=== PATIENT | male | born 1970 | race Caucasian/White ===

== ENCOUNTER 2019-06-05 11:25 | Observation (INO) ==
[2019-06-05 11:34] VITALS: BMI 30.7
--- NOTE | 2019-06-05 11:40 | DR.GENAD ---
HPI Time Seen Time Seen by Provider: 06/05/19 11:40 PCP Primary Care Physician: CROW Complaint/Symptoms Chief Complaint Doctors Comments: Patient is a 49 year old male who presents the to the ED for rectal bleeding. 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 Patient states that today in the AM he noticed bright red blood around 6:00 AM Per rectum. Patient states that he has not played this much before. He's continued to bleed since and had to pack his behind with toilet paper. Patient says that he did feel a little dizzy at one point while standing. He has previously seen procotologist and refused procedure due to possible side effect of incontinence. Chief Complaint:: PT. STATES HE HAS AN ANAL FISSURE AND IT HAS BEEN BLEEDING PROFUSELY FOR SEVERAL HOURS. Nurses notes reviewed Nurses Notes Review: Yes Source History Provided: Patient Mode of Arrival Mode of Arrival: Ambulatory Timing Onset of Chief Complaint: 06/05/19 PMH PMH Past Medical History: No Past Surgical History: No Surgical History: No History Family History History of Family Medical Conditions: No Social History Does patient currently use any type of tobacco product: Yes Have you used tobacco products in the last 12 months: Yes Type of Tobacco Use: VAPES Does any household member use tobacco: Yes Alcohol Use: Occasionally Do you use any recreational Drugs:: No Lives With: Spouse Lives Where: Home infectious screening In the last 2 months have you had wt loss of >10#?: NO Have you had fever, night sweats or hemotysis?: No Have you traveled outside the country in the last 6 months?: No Isolation: Standard ROS Review of Systems Constitutional: Weakness Eyes: No Symptoms Reported ENTM: No Symptoms Reported Respiratoy: No Symptoms Reported Cardiovascular: No Symptoms Reported Gastrointestinal/Abdominal: No Symptoms Reported Genitourinary: Bleeding (rectal bleeding dark red blood.) Neurological: No Symptoms Reported Musculoskeletal: No Symptoms Reported Integumentary: No Symptoms Reported Hematologic/Lymphatic: No Symptoms Reported Endocrine: No Symptoms Reported Psychiatric: No Symptoms Reported All Other Systems: Reviewed and Negative PE Vital Signs Vitals: Temperature 97.9 F Pulse Rate 114 Respiratory Rate 20 Blood Pressure 203/118 O2 Sat by Pulse Oximetry 99 General Limitations: No Limitations General Appearance: Alert and In No Apparent Distress Head Head Exam: Normal Inspection, Atraumatic and Normocephalic Eyes Eye exam: Normal Appearance and EOMI ENT ENT Exam: Normal Exam and Normal Oropharynx Nose Exam: Normal Nose Exam Mouth Exam: Normal Inspection and Drooling Neck Neck Exam: Normal Inspection and Full ROM Respiratory Respiratory Exam: Normal Lung Sounds Bilat Respiratory Exam: Bilateral: Clear to Auscultation Cardiovascular Cardiovascular Exam: Regular Rate and Normal Rhythm Abdominal Exam Abdominal Exam: Normal Inspection, Normal Bowel Sounds and Soft Extremities Extremities Exam: Normal Inspection and Full ROM Back Back Exam: Normal Inspection and Full ROM Neurologic Neurological Exam: Alert, Oriented X3 and CN II-XII Intact Psychiatric Psychiatric Exam: Normal Affect and Normal Mood Skin Skin Exam: Warm, Dry and Other (rectal exam, shows neelima blood bleeding from rectum. ) MDM Additional Information Additional Information Obtained From: Family Differential Diagnosis Differential Diagnosis: rectal fistula, rectal bleeding, hemorrhoids. 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 Plan was discussed with surgery team. They advised impatient work up and possible procedure. Patient has been kept NPO. Patients H&H was stable although patient continues to bleed significantly from the rectum . Reevaluation 1st: Unchanged (12:45 pt still bleeding from rectum. ) 2nd: Unchanged (13:05 pt same still bleeding from rectum, discussed care plan and need for admission. ) 3rd: Unchanged (13:42 Dr. Yates with pt, pt is stable. ) Consultation Called: 13:01 Call Returned: 13:01 Consultation Comments: Dr. Yates advised inpt admission and keep NPO for possible procedure. Education/Counseling Education/Counseling: Patient, Family, Education and Counseling Educated On: Treatment, Diagnosis, Prognosis and Needs for Follow Up ROR Labs Reviewed Laboratory Results Reviewed?: Yes Result Diagrams: 06/05/19 12:38 06/05/19 12:38 Laboratory: WBC 6.6 X10^3/uL (3.6-10.0) 06/05/19 12:38 RBC 4.78 X10^6/uL (4.7-6.0) 06/05/19 12:38 Hgb 14.9 g/dL (13.5-18.0) 06/05/19 12:38 Hct 43.1 % (42.0-54.0) 06/05/19 12:38 MCV 90.2 fL (80.0-100.0) 06/05/19 12:38 MCH 31.2 pg (27.0-34.0) 06/05/19 12:38 MCHC 34.5 g/dL (33.0-35.0) 06/05/19 12:38 RDW 12.8 % (11.6-16.5) 06/05/19 12:38 Plt Count 238 X10^3/uL (150.0-450.0) 06/05/19 12:38 MPV 7.8 fL (7.4-11.0) 06/05/19 12:38 Neut % (Auto) 72.0 % (42.0-75.0) 06/05/19 12:38 Lymph % (Auto) 21.0 % (21.0-51.0) 06/05/19 12:38 [place] % (Auto) 5.8 % (0.0-13.0) 06/05/19 12:38 Eos % (Auto) 0.5 % (0.9-2.9) L 06/05/19 12:38 Baso % (Auto) 0.7 % (0.2-1.0) 06/05/19 12:38 Neut # (Auto) 4.8 x10^3/uL (2.2-4.8) 06/05/19 12:38 Lymph # (Auto) 1.4 X10^3/uL (1.3-2.9) 06/05/19 12:38 [place] # (Auto) 0.4 x10^3/uL (0.3-0.8) 06/05/19 12:38 Eos # (Auto) 0.0 x10^3/uL (0.0-0.2) 06/05/19 12:38 Baso # (Auto) 0.0 X10^3/uL (0.0-0.1) 06/05/19 12:38 Absolute Nucleated RBC 0.0 /100WBC 06/05/19 12:38 Sodium 141 mmol/L (136-145) 06/05/19 12:38 Corrected Sodium 141 mmol/L (136-145) 06/05/19 12:38 Potassium 3.9 mmol/L (3.5-5.1) 06/05/19 12:38 Chloride 103 mmol/L (98-107) 06/05/19 12:38 Carbon Dioxide 26.7 mmol/L (21-32) 06/05/19 12:38 BUN 10 mg/dL (7-18) 06/05/19 12:38 Creatinine 1.05 mg/dL (0.70-1.30) 06/05/19 12:38 Est GFR (MDRD) Af Amer > 60 (>60) 06/05/19 12:38 Est GFR (MDRD) Non-Af > 60 (>60) 06/05/19 12:38 Glucose 115 mg/dL (65-99) H 06/05/19 12:38 Calcium 9.1 mg/dL (8.5-10.1) 06/05/19 12:38 Corrected Calcium TNP 06/05/19 12:38 Total Bilirubin 0.50 mg/dL (0.2-1.0) 06/05/19 12:38 AST 18 Units/L (15-37) 06/05/19 12:38 ALT 19 Units/L (12-78) 06/05/19 12:38 Alkaline Phosphatase 98 Units/L (46-116) 06/05/19 12:38 Total Protein 7.9 g/dL (6.4-8.2) 06/05/19 12:38 Albumin 4.6 g/dL (3.4-5.0) 06/05/19 12:38 Globulin 3.3 g/dL (2.5-4.5) 06/05/19 12:38 Albumin/Globulin Ratio 1.4 Ratio (1.1-2.1) 06/05/19 12:38 Opioid Opioid Risk Tool Age (Guido box if 16-45): No History of Preadolescent Sexual Abuse: No Total: 0 Total Score Risk Category: Low Risk Copyright: Shawn LIPSCOMB predicting aberrant behaviors Diagnosis Discharge Problem: Anal fissure and fistula, RB (rectal bleeding) Narrative Support Text: admit to Dr. Yates.
[2019-06-05 12:44] LABS: BASOPHILS % (AUTO) 0.7 % (0.2-1.0); EOSINOPHILS % (AUTO) 0.5 % (0.9-2.9); HEMATOCRIT 43.1 % (42.0-54.0); HEMOGLOBIN 14.9 g/dL (13.5-18.0); LYMPHOCYTES # (AUTO) 1.4 X10^3/uL (1.3-2.9); MEAN CORPUSCULAR HEMOGLOBIN 31.2 pg (27.0-34.0); MEAN CORPUSCULAR HGB CONC 34.5 g/dL (33.0-35.0); MEAN CORPUSCULAR VOLUME 90.2 fL (80.0-100.0); MEAN PLATELET VOLUME 7.8 fL (7.4-11.0); MONOCYTES # (AUTO) 0.4 x10^3/uL (0.3-0.8); MONOCYTES % (AUTO) 5.8 % (0.0-13.0); NEUTROPHILS # (AUTO) 4.8 x10^3/uL (2.2-4.8); PLATELET COUNT 238 X10^3/uL (150.0-450.0); RED BLOOD COUNT 4.78 X10^6/uL (4.7-6.0); RED CELL DISTRIBUTION WIDTH 12.8 % (11.6-16.5); WHITE BLOOD COUNT 6.6 X10^3/uL (3.6-10.0)
[2019-06-05 12:56] LABS: ALANINE AMINOTRANSFERASE 19 Units/L (12-78); ALBUMIN 4.6 g/dL (3.4-5.0); ALKALINE PHOSPHATASE 98 Units/L (46-116); ASPARTATE AMINO TRANSFERASE 18 Units/L (15-37); BLOOD UREA NITROGEN 10 mg/dL (7-18); CALCIUM 9.1 mg/dL (8.5-10.1); CARBON DIOXIDE 26.7 mmol/L (21-32); CHLORIDE 103 mmol/L (98-107); COR NA(FOR HYPERGLY) 141 mmol/L (136-145); CREATININE 1.05 mg/dL (0.70-1.30); SODIUM 141 mmol/L (136-145); TOTAL PROTEIN 7.9 g/dL (6.4-8.2); eGFR NON BLACK RACES > 60 (>60)
[2019-06-05] MEDS ORDERED: PROTONIX INJ 40 MG VIAL IVP ONE (13:10)
[2019-06-05] MEDS: NS 1000 ML 1,000 ML IV SCH ×4 (13:25→23:21)
[2019-06-05] MEDS ORDERED: PROTONIX INJ 40 MG VIAL ONE (13:25)
[2019-06-05] MEDS ORDERED: NS 1000 ML 1,000 ML ONE (13:25)
[2019-06-05] MEDS: NS 100 ML IV 100 ML IV SCH ×2 (13:30→16:07)
[2019-06-06 05:56] LABS: BASOPHILS # (AUTO) 0.1 X10^3/uL (0.0-0.1); EOSINOPHILS # (AUTO) 0.2 x10^3/uL (0.0-0.2); HEMATOCRIT 39.9 % (42.0-54.0); HEMOGLOBIN 13.9 g/dL (13.5-18.0); LYMPHOCYTES % (AUTO) 34.6 % (21.0-51.0); MEAN CORPUSCULAR HEMOGLOBIN 31.5 pg (27.0-34.0); MEAN PLATELET VOLUME 7.9 fL (7.4-11.0); MONOCYTES # (AUTO) 0.5 x10^3/uL (0.3-0.8); MONOCYTES % (AUTO) 9.3 % (0.0-13.0); NEUTROPHILS % (AUTO) 52.1 % (42.0-75.0); PLATELET COUNT 226 X10^3/uL (150.0-450.0); RED BLOOD COUNT 4.43 X10^6/uL (4.7-6.0); RED CELL DISTRIBUTION WIDTH 13.1 % (11.6-16.5); WHITE BLOOD COUNT 5.7 X10^3/uL (3.6-10.0)
[2019-06-06 06:07] LABS: ALANINE AMINOTRANSFERASE 16 Units/L (12-78); ALBUMIN 3.6 g/dL (3.4-5.0); ALKALINE PHOSPHATASE 81 Units/L (46-116); ASPARTATE AMINO TRANSFERASE 14 Units/L (15-37); BLOOD UREA NITROGEN 10 mg/dL (7-18); CALCIUM 8.4 mg/dL (8.5-10.1); CARBON DIOXIDE 24.5 mmol/L (21-32); CHLORIDE 108 mmol/L (98-107); CREATININE 1.01 mg/dL (0.70-1.30); SODIUM 142 mmol/L (136-145); TOTAL PROTEIN 6.5 g/dL (6.4-8.2); eGFR NON BLACK RACES > 60 (>60)
[2019-06-06] MEDS: NS 1000 ML 1,000 ML IV SCH ×2 (06:10→07:09)
[2019-06-06 08:41] VITALS: BP 136/86
== END 2019-06-06 11:30 | disposition home or self-care (01) ==
LOC: MED/SURG 11:31 → ER 11:31 → MED/SURG 14:30
PROVIDERS: ADMIT Surgery; ATTEND Surgery
DX: K64.8 Other hemorrhoids; K62.5 Hemorrhage of anus and rectum
CPT/HCPCS: 36415; 80053; 85025; 94760; 96365; 96367; 96374; 99284; A4216; A4222; C9113; G0378; J7030; J7050